=== PATIENT | female | born 1950 | race Caucasian/White ===

== ENCOUNTER 2017-08-10 15:22 | Emergency (ER) | payer MEDICAID ==
[2017-08-10] MEDS: ONDANSETRON 4 MG INJ IV (22:53)
[2017-08-10] MEDS: morphine 4 MG/ML VIAL IV (22:53)
[2017-08-10] MEDS: SOD CHLORIDE 0.9% 1,000 ML IV (22:53)
[2017-08-10 22:58] LABS: URINE BLOOD (Dip) POC 2+ (NEGATIVE); URINE GLUCOSE (Dip) POC Negative (NEGATIVE); URINE KETONES (Dip) POC Negative (NEGATIVE); URINE LEUKOCYTE EST (Dip) POC Negative (NEGATIVE); URINE NITRITE (Dip) POC Negative (NEGATIVE); URINE TOTAL PROTEIN POC Negative (NEGATIVE)
[2017-08-10 23:10] LABS: ADD MAN DIFF? NO
[2017-08-10 23:13] LABS: WHITE BLOOD COUNT 9.4 10^3/ul (4.8-10.8)
[2017-08-10 23:13] LABS: BASOPHILS % 0.3 % (0.0-2.0); EOSINOPHILS # 0.1 10^3/ul (0.0-0.5); HEMATOCRIT 46.6 % (37.0-47.0); HEMOGLOBIN 15.3 g/dl (12.0-16.0); LYMPHOCYTES # 1.3 10^3/ul (0.8-2.9); LYMPHOCYTES % 13.8 % (15.0-51.0); MEAN CORPUSCULAR HEMOGLOBIN 29.5 pg (29.0-33.0); MEAN CORPUSCULAR HGB CONC 32.8 g/dl (32.0-37.0); MEAN CORPUSCULAR VOLUME 89.8 fl (82.0-101.0); MEAN PLATELET VOLUME 9.5 fl (7.4-10.4); MONOCYTE # 0.7 10^3/ul (0.3-0.9); MONOCYTES % 7.4 % (0.0-11.0); NEUTROPHIL # 7.3 10^3/ul (1.6-7.5); NEUTROPHILS % 77.2 % (39.0-77.0); PLATELET COUNT 256 10^3/UL (140-415); RED BLOOD COUNT 5.19 10^6/ul (4.20-5.40)
[2017-08-10 23:29] LABS: ADD UMIC YES; UR ASCORBIC ACID NEGATIVE (NEGATIVE); UR BACTERIA FEW /HPF (NONE SEEN); UR BILIRUBIN (Dip) NEGATIVE (NEGATIVE); UR BLOOD (Dip) 2+ mg/dL (NEGATIVE); UR CLARITY CLEAR (CLEAR); UR COLOR YELLOW (YELLOW); UR GLUCOSE (Dip) NEGATIVE (NEGATIVE); UR KETONES (Dip) NEGATIVE (NEGATIVE); UR LEUKOCYTE ESTERASE (Dip) NEGATIVE Leu/ul (NEGATIVE); UR MUCUS FEW /HPF (NONE SEEN); UR NITRITE (Dip) NEGATIVE (NEGATIVE); UR RBC 8 /HPF (0-5); UR SPECIFIC GRAVITY (Dip) 1.017 (1.003-1.030); UR TOTAL PROTEIN (Dip) NEGATIVE (NEGATIVE); UR UROBILINOGEN (Dip) NEGATIVE (NEGATIVE); UR WBC 2 /HPF (0-5)
[2017-08-11 00:03] LABS: ALANINE AMINOTRANSFERASE 85 IU/L (13-69); ALBUMIN 4.3 g/dl (3.3-4.9); ALBUMIN/GLOBULIN RATIO 1.16; ALKALINE PHOSPHATASE 101 IU/L (42-121); ANION GAP 15 (8-16); ASPARTATE AMINO TRANSFERASE 95 IU/L (15-46); BILIRUBIN,INDIRECT 0.7 mg/dl (0-1.1); BILIRUBIN,TOTAL 0.7 mg/dl (0.2-1.3); BLOOD UREA NITROGEN 14 mg/dl (7-20); CALCIUM 9.3 mg/dl (8.4-10.2); CARBON DIOXIDE 30 mmol/L (21-31); CHLORIDE 99 mmol/L (97-110); CREATININE 0.72 mg/dl (0.44-1.00); GLUCOSE 107 mg/dl (70-220); LIPASE 353 U/L (23-300); POTASSIUM 3.4 mmol/L (3.5-5.1); SODIUM 141 mmol/L (135-144)
[2017-08-11] MEDS: DICYCLOMINE 10 MG CAP PO (00:16)
== END 2017-08-11 02:09 | disposition home or self-care (01) ==
LOC: E/R 08-11 02:09
DX: R10.9 Unspecified abdominal pain (principal); I10 Essential (primary) hypertension; E03.9 Hypothyroidism, unspecified; R11.2 Nausea with vomiting, unspecified; Z79.82 Long term (current) use of aspirin
CPT/HCPCS: 36415; 74176; 80053; 81001; 81003; 83690; 85025; 96374; 96375; 99285-25

== ENCOUNTER 2018-09-21 06:43 | Observation (INO) | payer MEDICAID ==
[2018-09-21 07:28] LABS: ADD MAN DIFF? NO
[2018-09-21 07:32] LABS: BASOPHIL # 0.1 10^3/ul (0.0-0.1); BASOPHILS % 1.2 % (0.0-2.0); EOSINOPHILS # 0.2 10^3/ul (0.0-0.5); EOSINOPHILS % 2.7 % (0.0-7.0); HEMATOCRIT 45.2 % (37.0-47.0); HEMOGLOBIN 14.5 g/dl (12.0-16.0); LYMPHOCYTES # 1.7 10^3/ul (0.8-2.9); MEAN CORPUSCULAR HEMOGLOBIN 28.8 pg (29.0-33.0); MEAN CORPUSCULAR HGB CONC 32.1 g/dl (32.0-37.0); MEAN CORPUSCULAR VOLUME 89.9 fl (82.0-101.0); MONOCYTE # 0.5 10^3/ul (0.3-0.9); MONOCYTES % 8.6 % (0.0-11.0); NEUTROPHIL # 3.4 10^3/ul (1.6-7.5); NEUTROPHILS % 58.5 % (39.0-77.0); PLATELET COUNT 207 10^3/UL (140-415); RED BLOOD COUNT 5.03 10^6/ul (4.20-5.40); RED CELL DISTRIBUTION WIDTH 13.2 % (11.5-14.5)
[2018-09-21 07:32] LABS: WHITE BLOOD COUNT 5.8 10^3/ul (4.8-10.8)
[2018-09-21] MEDS: SOD CHLORIDE 0.9% 500 ML IV (07:33)
[2018-09-21 07:47] LABS: ALANINE AMINOTRANSFERASE 20 IU/L (13-69); ALBUMIN/GLOBULIN RATIO 1.25; ALKALINE PHOSPHATASE 89 IU/L (42-121); ANION GAP 10 (5-13); ASPARTATE AMINO TRANSFERASE 29 IU/L (15-46); BILIRUBIN,INDIRECT 0.3 mg/dl (0-1.1); BILIRUBIN,TOTAL 0.3 mg/dl (0.2-1.3); BLOOD UREA NITROGEN 13 mg/dl (7-20); CALCIUM 9.5 mg/dl (8.4-10.2); CARBON DIOXIDE 27 mmol/L (21-31); CHLORIDE 104 mmol/L (97-110); CREATINE KINASE 81 IU/L (23-200); Estimated GFR > 60 mL/min (>60); GLUCOSE 106 mg/dl (70-220); POTASSIUM 3.8 mmol/L (3.5-5.1); SODIUM 141 mmol/L (135-144); TOTAL PROTEIN 7.2 g/dl (6.1-8.1)
[2018-09-21 07:48] LABS: INR 0.83; PROTIME 11.5 Sec (11.9-14.9); PT RATIO 0.9
[2018-09-21 07:49] LABS: PARTIAL THROMBOPLASTIN TIME 29.4 Sec (23.0-35.0)
[2018-09-21 07:59] LABS: B-TYPE NATRIURETIC PEPTIDE 191 PG/ML (0-125); CK INDEX 1.1; CK-MB 0.88 ng/ml (0.0-2.4); TROPONIN-I < 0.012 ng/ml (0.000-0.120)
[2018-09-21] MEDS ORDERED: ACETAMINOPHEN 325 MG TAB PO ×2 (08:30→11:00)
[2018-09-21] MEDS ORDERED: ONDANSETRON 4 MG INJ IV ×2 (08:30→11:00)
[2018-09-21] MEDS ORDERED: morphine 2 MG INJ IV (11:00)
[2018-09-21] MEDS ORDERED: NITROGLYCERIN (SL) 0.4 MG TAB SL (11:00)
[2018-09-21] MEDS ORDERED: NACL 0.9% 3 ML SYG IV (11:00)
[2018-09-21] MEDS ORDERED: DOCUSATE SODIUM 100 MG CAP PO (11:00)
[2018-09-21 11:45] LABS: CREATINE KINASE 73 IU/L (23-200)
[2018-09-21 11:57] LABS: CK INDEX 1.1; CK-MB 0.78 ng/ml (0.0-2.4); TROPONIN-I < 0.012 ng/ml (0.000-0.120)
[2018-09-21] MEDS: LISINOPRIL 20 MG TAB PO (12:34)
[2018-09-21] MEDS: MULTIVITAMINS THERAPEUTIC TAB PO (12:34)
[2018-09-21] MEDS: HYDROCHLOROTHIAZIDE 25 MG TAB PO (12:35)
[2018-09-21 16:54] LABS: CREATINE KINASE 75 IU/L (23-200)
[2018-09-21 17:05] LABS: CK INDEX 0.7; CK-MB 0.52 ng/ml (0.0-2.4); TROPONIN-I < 0.012 ng/ml (0.000-0.120)
[2018-09-21] MEDS: FAMOTIDINE 20 MG TAB PO (21:31)
[2018-09-22 06:03] LABS: ADD MAN DIFF? NO
[2018-09-22 06:05] LABS: WHITE BLOOD COUNT 6.7 10^3/ul (4.8-10.8)
[2018-09-22 06:05] LABS: BASOPHIL # 0.1 10^3/ul (0.0-0.1); BASOPHILS % 0.9 % (0.0-2.0); EOSINOPHILS # 0.1 10^3/ul (0.0-0.5); EOSINOPHILS % 2.1 % (0.0-7.0); HEMATOCRIT 44.5 % (37.0-47.0); HEMOGLOBIN 14.2 g/dl (12.0-16.0); LYMPHOCYTES # 1.9 10^3/ul (0.8-2.9); LYMPHOCYTES % 28.9 % (15.0-51.0); MEAN CORPUSCULAR HEMOGLOBIN 28.9 pg (29.0-33.0); MEAN CORPUSCULAR HGB CONC 31.9 g/dl (32.0-37.0); MEAN CORPUSCULAR VOLUME 90.6 fl (82.0-101.0); MEAN PLATELET VOLUME 10.4 fl (7.4-10.4); MONOCYTE # 0.6 10^3/ul (0.3-0.9); MONOCYTES % 8.2 % (0.0-11.0); NEUTROPHILS % 59.5 % (39.0-77.0); PLATELET COUNT 220 10^3/UL (140-415); RED BLOOD COUNT 4.91 10^6/ul (4.20-5.40)
[2018-09-22 06:28] LABS: ALANINE AMINOTRANSFERASE 19 IU/L (13-69); ALBUMIN 3.9 g/dl (3.3-4.9); ALBUMIN/GLOBULIN RATIO 1.14; ALKALINE PHOSPHATASE 73 IU/L (42-121); ANION GAP 9 (5-13); ASPARTATE AMINO TRANSFERASE 26 IU/L (15-46); BILIRUBIN,INDIRECT 0.3 mg/dl (0-1.1); BILIRUBIN,TOTAL 0.3 mg/dl (0.2-1.3); BLOOD UREA NITROGEN 12 mg/dl (7-20); CALCIUM 9.3 mg/dl (8.4-10.2); CARBON DIOXIDE 28 mmol/L (21-31); CHLORIDE 102 mmol/L (97-110); CHOL/HDL RATIO 2.9 RATIO; CHOLESTEROL 132 mg/dl (100-200); CREATININE 0.62 mg/dl (0.44-1.00); Estimated GFR > 60 mL/min (>60); GLUCOSE 112 mg/dl (70-220); HDL CHOLESTEROL 45 mg/dl (35-98); LDL CHOLESTEROL,CALCULATED 69 mg/dl; MAGNESIUM 2.1 mg/dl (1.7-2.5); PHOSPHORUS 4.4 mg/dl (2.5-4.9); POTASSIUM 3.5 mmol/L (3.5-5.1); SODIUM 139 mmol/L (135-144); TOTAL PROTEIN 7.3 g/dl (6.1-8.1); TRIGLYCERIDES 92 mg/dl (0-149)
[2018-09-22 06:32] LABS: HEMOGLOBIN A1C 5.7 % (0-5.9)
[2018-09-22] MEDS: LEVOTHYROXINE 25 MCG TAB PO (07:04)
[2018-09-22] MEDS: ASPIRIN 81 MG TAB PO (08:18)
[2018-09-22] MEDS: MULTIVITAMINS THERAPEUTIC TAB PO (08:18)
[2018-09-22] MEDS: FAMOTIDINE 20 MG TAB PO (08:18)
[2018-09-22] MEDS: HYDROCHLOROTHIAZIDE 25 MG TAB PO (08:20)
[2018-09-22] MEDS: LISINOPRIL 20 MG TAB PO (08:20)
[2018-09-22] MEDS: ENOXAPARIN 40 MG/0.4 ML SYG SC (08:28)
[2018-09-22 10:41] LABS: FREE T4 (FREE THYROXINE) 0.85 ng/dl (0.78-2.44)
[2018-09-22] MEDS: ERGOCALCIFEROL 50,000 UNIT CAP PO (13:53)
== END 2018-09-22 15:36 | disposition home or self-care (01) ==
LOC: E/R 06:43 → 6WM 08:16
DX: R07.9 Chest pain, unspecified (principal); R20.0 Anesthesia of skin; E03.9 Hypothyroidism, unspecified; I10 Essential (primary) hypertension; E66.9 Obesity, unspecified; Z68.32 Body mass index [BMI] 32.0-32.9, adult
CPT/HCPCS: 70450; 70551; 71045; 80053; 80061; 82306; 82550; 82553; 82607; 82652; 83036; 83735; 83880; 84100; 84439; 84443; 84484; 85025; 85610; 85730; 93005; 93306; 93880; 99285-25; G0378